=== PATIENT | female | born 1980 | race Two or more races ===

== ENCOUNTER 2020-03-24 11:52 | Emergency (ER) | payer BC, SELFPAY ==
[2020-03-24] VITALS (27 sets, daily range): BP systolic 92–118; BP diastolic 39–77; PULSE 49–68; RESP 10–22; TEMP 36.8; O2SAT 93–100
--- NOTE | ~2020-03-24 | XR_ITS ---
EXAMINATION: XR chest 2V DATE: 03/24/2020 12:19 INDICATION: Bradycardia and weakness TECHNIQUE: frontal and lateral views of the chest were obtained. COMPARISON: Chest CT dated 07/10/2017 FINDINGS: The lungs are clear with no focal airspace opacities, pulmonary edema, pleural effusion or pneumothor ax. The cardiomediastinal silhouette is within normal limits for AP technique. Mild thoracic spondylo sis. IMPRESSION: 1. No acute cardiopulmonary disease. Reviewed, dictated and finalized at location A. RATURE TEACHER
--- NOTE | 2020-03-24 11:55 | ECG_ITS ---
Measurements Intervals [place] Rate: 49 P: 34 NE: 140 QRS: 32 QRSD: 87 T: 54 QT: 453 QTc: 412 Interpretive Statements SINUS BRADYCARDIA ABNORMAL ECG Electronically Signed On 03-24-2020 14:56:05 [employer]HAD[employer] VESSEL PILOT by Kulwinder Pelayo D.O.
[2020-03-24 12:17] LABS: Eosinophils Percent Auto 0.8 % (0-4.4); Hematocrit 32.4 % (37.0-47.0); Hemoglobin 11.1 g/dL (12.0-15.0); Lymphocytes Absolute Auto 2.23 K/mm3 (0.9-3.2); Lymphocytes Percent Auto 57.3 % (18.3-44.2); Mean Corpuscular HGB Conc 34.3 g/dl (32-36); Mean Corpuscular Hemoglobin 30.4 pg (26-34); Mean Corpuscular Volume 88.8 fl (80-100); Mean Platelet Volume 9.6 fl (7.4-10.4); Monocytes Absolute Auto 0.3 K/mm3 (0.1-0.6); Monocytes Percent Auto 8.5 % (2.6-8.5); Neutrophils Absolute Auto 1.3 K/mm3 (1.3-6.7); Neutrophils Percent Auto 32.4 % (45.5-73.1); Platelet Count Result 209 k/mm3 (150-375); Red Blood Count 3.65 M/mm3 (4.2-5.4); Red Cell Distribution Width 12.5 % (11.5-14.5); White Blood Count 3.9 K/mm3 (4.5-10.0)
[2020-03-24 12:29] LABS: Alanine Aminotransferase 13 U/L (4-35); Albumin Level 3.7 g/dL (3.5-5.1); Alkaline Phosphatase 59 U/L (38-126); Anion Gap 2 mmol/L (8-16); Aspartate Amino Transferase 20 U/L (14-36); Bilirubin,Total 0.4 mg/dL (0.2-1.3); Blood Urea Nitrogen 10 mg/dL (7-17); Calcium 8.7 mg/dL (8.4-10.2); Carbon Dioxide 26 mmol/L (22-30); Chloride 108 mmol/L (98-107); Estimated CRCL calculation 118 ml/min; Estimated Glomerular Filt Rate > 60; Glucose 108 mg/dL (65-105); Potassium 3.4 mmol/L (3.4-5.0); Sodium 136 mmol/L (137-145)
[2020-03-24 13:25] LABS: Add Urine Microscopic? YES; Appearance Urine Cloudy (Clear); Bacteria Urine Trace /hpf; Bilirubin Urine Negative (Negative); Blood Urine 3+ (Negative); Color Urine Straw (Yellow); Glucose Urine UA Negative (Negative); Ketones Urine Negative (Negative); Leukocyte Esterase Ur Negative LEU/UL (Negative); Mucus Urine Rare /lpf; Nitrate Urine Negative (Negative); Protein Urine 1+ mg/dL (Negative); RBC Urine 21-50 /hpf (0-2); Specific Grav Ur 1.012 (1.001-1.035); Squamous Epithelial Cell Urine Many /hpf (Few); Urobilinogen Urine Negative mg/dL (<2.0); WBC Urine 0-3 /hpf
--- NOTE | 2020-03-24 15:00 | ED.WEAKNESS ---
HPI - Weakness General Chief complaint: Weakness Stated complaint: near syncope/weakness Time Seen by Provider: 03/24/20 12:29 History of Present Illness HPI Narrative: Patient is a 39-year-old female who presents to the ER with weakness and syncope. Patient developed some low back pain last night and took some tramadol. She reports when she takes tramadol she gets lightheaded often. She took the medication at 1 AM. She woke up this morning around 11 and went to the bathroom. After getting up from the toilet she began to feel lightheaded. reports he caught her and that she may have been passed out for 10 seconds with her eyes open. She did not strike her head. She has been feeling nauseated since waking as well. She has been on her period in today's last day. Has not had this happen to her previously. No known sick contacts. No Covid symptoms. Related Data Allergies Allergy/AdvReac Type Severity Reaction Status Date / Time No Known Allergies Allergy Verified 03/24/20 12:09 Review of Systems Review of Systems: All systems reviewed & are unremarkable except as noted in HPI and below Constitutional: Constitutional: Denies chills, Reports fatigue and Denies fever(s) ENT: Denies nasal congestion and Denies sore throat Cardiovascular: Cardiovascular: Denies chest pain, Denies rapid heart rate and Denies radiating jaw, neck or arm pain Respiratory: Respiratory: Denies cough, Denies dyspnea and Denies wheezing Gastrointestinal: Gastrointestinal: Denies abdominal pain, Denies diarrhea, Reports nausea and Denies vomiting Genitourinary: Genitourinary: Denies abnormal vaginal bleeding, Denies nocturia and Denies dysuria Comments: Currently menstruating Neurologic: Reports syncope PMFSH Past Medical History Medical History Depression Surgical History Surgical History Previous section x 3 Family History Family History Father Family history of pancreatic cancer Social History Social History Smoking status: Never smoker Alcohol intake: never Gender identity (if verbalized by the patient): Female Exam Narrative: Exam Narrative: GENERAL: Well-appearing, well-nourished, and in no acute distress. HEAD: Normocephalic, atraumatic. EYES: PERRL and EOMI. CHEST: Clear to auscultation. No respiratory distress. HEART: Regular rate and rhythm. Normal peripheral pulses. ABDOMEN: Soft, nontender, nondistended. EXTREMITIES: Normal range of motion. No edema. SKIN: Warm, dry, no rash. NEURO: Alert and oriented x3. Course Course Emergency Course: Patient hydrated. Orthostatics normal. Received Zofran for nausea. Tolerating p.o. No source for patient's symptoms, may be related to the tramadol she took last night since she does get dizzy when she takes it. Discharge home with supportive therapy. Vital Signs Vital signs: Vital Signs Pulse Rate 53 L 03/24/20 11:59 Respiratory Rate 11 L 03/24/20 11:59 Blood Pressure 109/77 03/24/20 11:59 Pulse Oximetry 100 03/24/20 11:59 Temperature 98.3 F 03/24/20 12:02 Pulse Rate 54 L 03/24/20 13:43 Respiratory Rate 17 03/24/20 13:30 Blood Pressure 111/72 03/24/20 12:59 Pulse Oximetry 93 03/24/20 13:30 MDM - Weakness Lab Data Result diagrams: 03/24/20 12:11 03/24/20 12:11 Labs: Lab Results 03/24/20 03/24/20 03/24/20 Range/Units 12:11 12:11 13:15 WBC 3.9 L (4.5-10.0) K/mm3 RBC 3.65 L (4.2-5.4) M/mm3 Hgb 11.1 L (12.0-15.0) g/dL Hct 32.4 L (37.0-47.0) % MCV 88.8 (80-100) fl MCH 30.4 (26-34) pg MCHC 34.3 (32-36) g/dl RDW 12.5 (11.5-14.5) % Plt Count 209 (150-375) k/mm3 MPV 9.6 (7.4-10.4) fl Immature Gran % (Auto) 0.0
== END 2020-03-24 15:45 | disposition home or self-care (01) ==
PROVIDERS: General Practice; Emergency Provider Emergency Medicine
DX: R55 Syncope and collapse (principal); R00.1 Bradycardia, unspecified
CPT/HCPCS: 36415; 71046; 80053; 81001; 85025; 93005; 99283

== ENCOUNTER → 2020-12-05 13:59 | Outpatient (CLI) | payer BC, SELFPAY ==
--- NOTE | ~2020-12-05 | MM_ITS ---
EXAMINATION: MM screening dimitri BI w matthew HISTORY: Screening TECHNIQUE: Craniocaudal and mediolateral oblique 3-D tomosynthesis images were obtained and synthetic 2-D images were generated. CAD analysis was submitted and interpreted. COMPARISON: No prior mammogram is available for comparison at this institution. BREAST PARENCHYMAL COMPOSITION: The breasts are extremely dense, which lowers the sensitivity of mamm ography. FINDINGS: There is no evidence of suspicious mass, calcification, or architectural distortion to sugg est malignancy in either breast. There has been no suspicious interval change. IMPRESSION: 1. No mammographic evidence of malignancy. 2. Recommend routine screening mammography in one year. BI-RADS Category 1: Negative Reviewed, dictated and finalized at location A.
== END ==
PROVIDERS: PCP Physician Assistant; Visit Provider Physician Assistant
DX: Z12.31 Encounter for screening mammogram for malignant neoplasm of breast (principal)
CPT/HCPCS: 77063; 77067

== ENCOUNTER 2022-02-14 15:34 | Outpatient (RCR) | payer BC, SELFPAY ==
[2021-12-30 16:25] VITALS: BP 108/59; PULSE 94
[2021-12-31 00:54] LABS: Influenza A QL RT-PCR Negative (Negative); Influenza B QL RT-PCR Negative (Negative); SARS-CoV-2 RNA PCR Negative
[2022-01-30 10:37] VITALS: BP 107/65; PULSE 84
[2022-02-06 11:32] VITALS: BP 87/51; PULSE 91
[2022-02-06 11:45] VITALS: BP 95/65; PULSE 87
[2022-02-06 12:00] VITALS: BP 106/57; PULSE 88
[2022-02-06 12:08] VITALS: BP 106/57; PULSE 87
[2022-02-14 16:07] VITALS: BP 99/68; PULSE 84
== END 2022-03-21 07:43 | disposition home or self-care (01) ==
LOC: ANHOBOP 15:34
PROVIDERS: Visit Provider Obstetrics & Gynecology
DX: O36.8130 Decreased fetal movements, third trimester, not applicable or unspecified (principal); Z86.16 Personal history of COVID-19; Z3A.31 31 weeks gestation of pregnancy; Z3A.36 36 weeks gestation of pregnancy; Z3A.37 37 weeks gestation of pregnancy
CPT/HCPCS: 59025; 87636

== ENCOUNTER 2022-02-25 06:25 | Inpatient (IN) | payer BC, SELFPAY ==
[2022-02-25] VITALS (104 sets, daily range): BP systolic 75–103; BP diastolic 37–71; PULSE 64–98; RESP 10–16; TEMP 36.4–36.8; O2SAT 93–100; BMI 29.0
[2022-02-25] MEDS: LACTATED RINGERS 1,000 ML 125 ML IV CONT ×2 (07:50→09:35)
[2022-02-25 07:54] LABS: Basophils Percent Auto 0.4 % (0.2-1.2); Eosinophils Absolute Auto 0.1 K/mm3 (0-0.3); Eosinophils Percent Auto 1.3 % (0-4.4); Hematocrit 30.7 % (37.0-47.0); Hemoglobin 10.5 g/dL (12.0-15.0); Immature Granulocyte Absolute 0.01 K/mm3 (0.00-0.031); Immature Granulocyte Percent A 0.2 % (0-0.5); Lymphocytes Absolute Auto 1.84 K/mm3 (0.9-3.2); Mean Corpuscular HGB Conc 34.2 g/dl (32-36); Mean Corpuscular Hemoglobin 31.9 pg (26-34); Mean Corpuscular Volume 93.3 fl (80-100); Mean Platelet Volume 9.1 fl (7.4-10.4); Monocytes Absolute Auto 0.5 K/mm3 (0.1-0.6); Monocytes Percent Auto 10.2 % (2.6-8.5); Neutrophils Absolute Auto 2.1 K/mm3 (1.3-6.7); Neutrophils Percent Auto 46.9 % (45.5-73.1); Platelet Count Result 217 k/mm3 (150-375); Red Blood Count 3.29 M/mm3 (4.2-5.4); Red Cell Distribution Width 13.6 % (11.5-14.5); White Blood Count 4.5 K/mm3 (4.5-10.0)
--- NOTE | 2022-02-25 08:04 | ECG_ITS ---
Measurements Intervals [place] Rate: 66 P: 35 PA: 131 QRS: 25 QRSD: 86 T: 42 QT: 405 QTc: 427 Interpretive Statements SINUS RHYTHM NORMAL ECG COMPARED TO ECG 03/24/2020 11:56:20 SINUS RHYTHM NOW PRESENT Electronically Signed On 02-25-2022 8:37:30 [employer] DERRICK OPERATOR by Kulwinder Pelayo D.O.
--- NOTE | 2022-02-25 08:54 | LDADM ---
This patient, Rere Hurst, was admitted to Labor/Delivery/Recovery 119 on 02/25/22 at 06:25 with SROM. Plans for surgery/ and pain management were discussed with patient. Patient/family oriented to hospital policies and general routines including ID bracelet, bed and alarms, visiting hours, pain management, procedures, bathroom and other care routines, personal items, smoking policy, room service/diet and guest tray routines, security routines, and visiting hours. Patient/Family are encouraged to report perceived risks to care and to ask questions if they do not understand what they are told or what they should do. See OBIX for further documentation.
--- NOTE | 2022-02-25 09:14 | PM.IMHP ---
H&P: HPI History of Present Illness Date/Time: 02/25/22 09:14 Chief Complaint: Leaking of fluid Narrative: Patient at 39 weeks by LMP with an EDC 03/04/2022 consistent with a 6 week ultrasound presents with complaints of SROM clear at approximately 0500, occasional contractions. Cervix closed on exam on L and D. She was confirmed rupture of membranes on L and D. She has had 3 prior sections. She has been counseled regarding risk benefits of repeat section. She was scheduled for repeat section for 02/26/22. PNC significant for AMA, sciatica. Does not desire permanent sterilization. Labs reviewed. Reassuring tracing. Review of Systems Review of Systems: All systems reviewed & are unremarkable except as noted in HPI and below Constitutional: Constitutional: Reports no additional constitutional complaints and Denies headache(s) Eyes: Eyes: Denies spots in vision ENT: Reports system reviewed and no additional complaints, except as documented and Denies headache(s) Cardiovascular: Cardiovascular: Denies chest pain and Denies dyspnea Respiratory: Respiratory: Denies dyspnea Gastrointestinal: Gastrointestinal: Reports no additional gastrointestinal complaints Genitourinary: Genitourinary: Reports amenorrhea Musculoskeletal: Musculoskeletal: Reports no additional musculoskeletal complaints Integumentary/Breasts: Skin/Breast: Denies breast mass and Denies rash Neurologic: Denies headache(s) Psychiatric: Psychiatric: Reports no additional psychiatric complaints PMFSH Past Medical History Medical History Depression Surgical History Surgical History Previous section x 3 Family History Family History Father Family history of pancreatic cancer Social History Social History Smoking status: Never smoker Alcohol intake: never Substance use: never Gender identity (if verbalized by the patient): Female Spiritual care concerns: No Meds Home Medications and Allergies Home Medications Medication Instructions Recorded Confirmed Type prenat.vits,richie,pjd-rjhr-ipxef 1 tablet PO DAILY 10/09/21 02/25/22 History ferrous sulfate 325 mg (65 mg 325 mg PO BID #60 tabs 10/04/22 01/04/23 Rx iron) tablet aspirin 81 mg chewable tablet 81 mg PO DAILY 02/25/22 02/25/22 History cholecalciferol (vitamin D3) 50 50 mcg PO DAILY 02/25/22 02/25/22 History mcg (2,000 unit) tablet (Vitamin D3) Allergies Allergy/AdvReac Type Severity Reaction Status Date / Time azithromycin Allergy Difficulty Verified 02/25/22 08:07 Breathing Vital Signs Vital Signs - 24 hr 02/25/22 08:05 02/25/22 06:59 02/25/22 07:01 Pulse Rate 72 76 Blood Pressure 102/58 L 103/62 Pulse Oximetry Oxygen Delivery Room Air 02/25/22 07:59 02/25/22 08:01 02/25/22 08:04 Pulse Rate 84 Blood Pressure 95/65 L Pulse Oximetry 100 96 Oxygen Delivery 02/25/22 08:09 02/25/22 08:14 02/25/22 08:19 Pulse Rate Blood Pressure Pulse Oximetry 97 100 99 Oxygen Delivery 02/25/22 08:24 02/25/22 08:29 02/25/22 08:34 Pulse Rate Blood Pressure Pulse Oximetry 100 100 98 Oxygen Delivery 02/25/22 08:39 02/25/22 08:41 02/25/22 08:46 Pulse Rate Blood Pressure Pulse Oximetry 100 100 98 Oxygen Delivery 02/25/22 08:51 02/25/22 09:06 02/25/22 09:11 Pulse Rate Blood Pressure Pulse Oximetry 100 99 100 Oxygen Delivery 02/25/22 08:11 Pulse Rate Blood Pressure Pulse Oximetry 97 Oxygen Delivery Exam Const: General: no acute distress Eyes: General: appearance normal, both eyes and all related structures Resp: Effort & Inspection: normal respiratory effort Cardio: Rate: regular rate GI:
--- NOTE | 2022-02-25 09:47 | WPDHPUPDATE1 ---
History and Physical Update Update Date/Time: 02/25/22 09:47 History and Physical has been reviewed, including an updated exam of the patient. There are NO changes in the patient's condition. Risks, benefits, and alternatives have been discussed and questions answered. Patient agrees to proceed with procedure.
[2022-02-25] MEDS: ceFAZolin 2 GM/D5W 50 ML 2 GM/50 ML BAG IVPB (09:48)
--- NOTE | 2022-02-25 11:51 | SUR.PHASEI ---
Pt has IV of 1000 LR with 20 units Pitocin infusing- 300 ml remains.
[2022-02-25] MEDS: OXYTOCIN 30 UNITS/NS 500 ML 30 UNITS/500 ML BAG 125 UNITS IV CONT (12:33)
[2022-02-25] MEDS: MORPHINE SULFATE INJ (*CRX) 10 MG/ML AMP 2 MG IV PUSH ×2 (12:45→13:10)
[2022-02-25] MEDS: LACTATED RINGERS 250 ML 999 ML IVPB (12:52)
[2022-02-25 14:32] LABS: Rapid Plasma Reagin Non-Reactive (NonReactive)
--- NOTE | 2022-02-25 14:47 | PC.NURSE ---
Patient transferred to post room #277 via stretcher. Support person present. Oriented to unit, room, information board, rooming in, admission packet and security measures. Patient verbalizes understanding.
--- NOTE | 2022-02-25 16:16 | PC.NURSE ---
1545 - 1616 Introductions were made, then consulted with patient to assess needs related to . Mother is demonstrating to the left breast effectively. Mother had several questions regarding supplementing with formula, pumping and parents were instructed that feeding the baby water was not recommended. Risks and benefits of pumping at this time was discussed so the parents can make an informed decision. Parents were encouraged to have a discussion with the ICP. Resources provided for inpatient assistance. Mother voiced understanding of information and will call if there is a request for assistance. Reported to primary RN. 1625 - Mother's nipples were measured for flange fit 24mm in the chance mother would decide to start pumping on the slot shift supervisor. Reported to the Primary RN.
[2022-02-25] MEDS: DEXTROSE 5%/0.45% SOD CHL 1,000 ML 125 ML IV CONT (16:50)
--- NOTE | 2022-02-25 21:33 | P.OP_ITS ---
Procedure Note - Detailed Date of Procedure 02/26/22 Pre-op Diagnosis Repeat C/S Post-op Diagnosis Same Procedure Performed Repeat low transverse section. Surgeon Geremias Valencia MD Anesthesia Spinal Indications Patient with three prior sections presented with SROM and proceeded with recommend repeat section. Findings female infant, normal uterus and ovaries, Description of Procedure After informed consent, risks and benefits of the procedure was discussed with the patient. The patient was taken to the operating room where she was placed in the dorsal lithotomy position with leftward tilt. After the prior placed epidural anesthesia was found to be adequate, she was then prepped and draped in the usual sterile fashion. A Pfannenstiel skin incision was made with a scalpel and carried through to the underlying layer of fascia. The fascia was then nicked in the midline, extending bilaterally. The fascia was very scarred to rectus muscles and was dissected off the rectus muscles bluntly and sharply, superiorly and inferiorly. The rectus muscles were in the midline, and peritoneum was identified and entered bluntly. The pelvic organs were visualized. The bladder blade was then inserted. The lower uterine segment was very thin. The low transverse uterine incision was then made with the scalpel and extended with bilateral index fingers in a crescent-shaped fashion. The head was delivered, loose nuchal cord was manually reduced, and the rest of the infant was delivered. The nose and mouth suctioned. The cord was clamped twice and cut. The was then handed off to the awaiting pediatric staff. The placenta was then delivered manually. The uterine cavity was sponge curretted. The uterus was then exteriorized. The uterine incision was then closed with 0 vicryl in a running locked fashion. Figure of eight sutures were used to umbricate incision and for hemostasis with 0 vicryl Hemostasis noted. The posterior cul de sac was irrigated. The uterus was then returned to the abdomen. Bilateral gutters were cleared off all clots and debris. The uterine incision was inspected and a figure of eight stitch on the right was used at an area that had some bleeding. Hemostasis obtained. Hemoderm and Interceed placed on uterine incision and vertically on front of uterus. The muscle bellies were inspected and cautery and several 0 vicryl stitches were used to obtain hemostasis at the right muscle belly. Hemostasis was noted.The subfascial layer was noted to be hemostatic, and the fascia was closed with 0 PDS in a running fashion. The subc utaneous layer was then closed with 3-0 Vicryl in a subcutaneous fashion. The skin was closed with 4.0 vicryl in a subcuticular fashion. Skin dermabond applied at incision. Dressing placed. All instruments, needle, and lap counts were correct x3. The patient was taken to the recovery room in stable condition. Estimated Blood Loss 1,100 Drains No Packing No Pathology None sent Complications No immediate complications Condition Stable Disposition Floor [facility] Billing Surgery - Charge Forward: Surgery Billing
[2022-02-25] MEDS: HYDROcodone/acetaminophen (*CRX) 10-325 MG TABLET 1 TAB PO (23:33)
[2022-02-26] MEDS: IBUPROFEN 600 MG TABLET PO ×3 (02:36→17:38)
[2022-02-26] MEDS: HYDROcodone/acetaminophen (*CRX) 10-325 MG TABLET 1 TAB PO ×5 (02:36→20:50)
[2022-02-26] MEDS: SIMETHICONE 80 MG TAB.CHEW PO ×4 (02:36→19:49)
[2022-02-26 04:10] VITALS: BP 89/50; PULSE 74; RESP 18; TEMP 36.9
[2022-02-26 04:47] LABS: Basophils Percent Auto 0.3 % (0.2-1.2); Eosinophils Percent Auto 0.5 % (0-4.4); Hematocrit 25.8 % (37.0-47.0); Hemoglobin 8.8 g/dL (12.0-15.0); Immature Granulocyte Absolute 0.02 K/mm3 (0.00-0.031); Immature Granulocyte Percent A 0.3 % (0-0.5); Lymphocytes Absolute Auto 2.04 K/mm3 (0.9-3.2); Lymphocytes Percent Auto 26.9 % (18.3-44.2); Mean Corpuscular HGB Conc 34.1 g/dl (32-36); Mean Corpuscular Hemoglobin 31.5 pg (26-34); Mean Corpuscular Volume 92.5 fl (80-100); Mean Platelet Volume 9.5 fl (7.4-10.4); Monocytes Absolute Auto 0.7 K/mm3 (0.1-0.6); Monocytes Percent Auto 9.1 % (2.6-8.5); Neutrophils Absolute Auto 4.8 K/mm3 (1.3-6.7); Neutrophils Percent Auto 62.9 % (45.5-73.1); Platelet Count Result 202 k/mm3 (150-375); Red Blood Count 2.79 M/mm3 (4.2-5.4); Red Cell Distribution Width 13.5 % (11.5-14.5); White Blood Count 7.6 K/mm3 (4.5-10.0)
[2022-02-26 07:35] VITALS: BP 88/58; PULSE 64; RESP 16; TEMP 37.2; O2SAT 98
[2022-02-26] MEDS: DOCUSATE SODIUM 100 MG CAPSULE PO ×2 (09:29→17:41)
[2022-02-26] MEDS: MULTIVIT/MIN/PREN/FOL AC/IRON TABLET 1 TAB PO (09:29)
[2022-02-26] MEDS: POLYSACCHARIDE IRON COMPLEX 150 MG CAPSULE PO ×2 (09:29→17:40)
--- NOTE | 2022-02-26 09:52 | WPDANLDPN2 ---
Anes-Prog Note L&D Date/Time: 02/26/22 09:52 Comfortable throughout: section Neuraxial method: spinal Epidural/Spinal procedure site: clean & non-tender Neuro status: Neuro function grossly intact. Cardiovascular status: normal Respiratory status: normal Airway patency: baseline Mental status: baseline Post-Op hydration status: normal Vital Signs: Last Vital Signs Temp 37.2 C 02/26/22 07:35 Pulse 64 02/26/22 07:35 Resp 16 02/26/22 07:35 BP 88/58 L 02/26/22 07:35 Pulse Ox 98 02/26/22 07:35 O2 Del Method Room Air 02/26/22 04:10 Pain score (VAS): 4/10 I/O: Intake & Output 02/25/22 02/26/22 02/26/22 23:59 07:59 15:59 Intake Total 1050 1600 Output Total 1550 1550 Balance -500 50 Post-procedural complaints: none Patient feedback: Patient satisfied with anesthetic care.
--- NOTE | 2022-02-26 09:53 | WPDANLDNPN2 ---
Anes-Prog Note L&D-Neuraxial Date/Time: 02/26/22 09:53 Neuraxial medications: intrathecal PF morphine Opiod-related complaints: none Patient feedback: Patient satisfied with post-operative pain management.
--- NOTE | 2022-02-26 16:08 | PC.NURSE ---
[id number] Mother verbalizes she is able to independently latch with appropriate positioning/alignment. She denies any nipple discomfort and is responsively . is currently meeting outcomes for weight, output, jaundice and feeding frequencies of 8-12 times in 24 hours. Mother declines any additional assistance/education at this time. Mother is encouraged to call for assistance if her doesn?t latch or there is discomfort with latching. Mother voiced understanding of information shared and the mom reminded of the mom/baby guide for an additional resource. Reported to the primary RN.
[2022-02-26 19:49] VITALS: BP 89/53; PULSE 86; RESP 18; TEMP 36.8; O2SAT 97
--- NOTE | 2022-02-26 21:03 | P.PNOB_ITS ---
OB - PN: Subj Subjective Date/time seen: 02/26/22 0740 Patient comments: pain well controlled baby status: nursing well feeding status: exclusively breast feeding Narrative: She has ambulated in room. Tolerated liquids, no flatus. No leg pain. Minimal lochia. She has adequate pain control with oral medication. No hypovolemic symptoms. OB - PN: Obj Data Labs 02/26/22 03:55 Labs: Laboratory Results - last 24 hr 02/26/22 03:55 WBC 7.6 RBC 2.79 L Hgb 8.8 L Hct 25.8 L MCV 92.5 MCH 31.5 MCHC 34.1 RDW 13.5 Plt Count 202 MPV 9.5 Immature Gran % (Auto) 0.3 Neut % (Auto) 62.9 Lymph % (Auto) 26.9 [place] % (Auto) 9.1 H Eos % (Auto) 0.5 Baso % (Auto) 0.3 Lymph # (Auto) 2.04 [place] # (Auto) 0.7 H Eos # (Auto) 0.0 Baso # (Auto) 0.0 Abs Immat Gran (auto) 0.02 Absolute Neuts (auto) 4.8 Absolute Nucleated RBC 0.0 Nucleated RBC % 0.0 OB - PN A/P Assessment and Plan (1) Delivery by section at 37-39 weeks of gestation due to labor: Code(s): O75.82 - Onset (spontaneous) of labor after 37 completed weeks of gestation but before 39 completed weeks gestation, with delivery by (planned) section Status: Acute Assessment and Plan: POD1 s/p repeat . She is doing well. Asymptomatic anemia. Continue iron supplementation. Routine post op care. Time Spent With Patient Time: Total time spent is greater than 50% in coordination of care (as documented) at patient's floor/unit and/or counseling patient: Exam Const: General: comfortable Eyes: General: appearance normal, both eyes and all related structures Neck: Neck: normal visual inspection Resp: Effort & Inspection: normal respiratory effort Auscultation: clear to auscultation bilaterally Cardio: Rate: regular rate Rhythm: regular rhythm GI: Inspection: normal to inspection Other: dressing clean dry intact, fundus -2umb, appropriate fundal tenderness Extrem: Other: nontender bilat, no swelling bilat Psych: Appearance: grossly normal
[2022-02-27] MEDS: SIMETHICONE 80 MG TAB.CHEW PO ×4 (04:00→19:39)
[2022-02-27] MEDS: IBUPROFEN 600 MG TABLET PO ×3 (04:00→19:32)
[2022-02-27] MEDS: HYDROcodone/acetaminophen (*CRX) 10-325 MG TABLET 1 TAB PO ×3 (04:00→15:30)
[2022-02-27 08:05] VITALS: BP 94/58; PULSE 76; RESP 18; TEMP 37.6; O2SAT 100
[2022-02-27] MEDS: MULTIVIT/MIN/PREN/FOL AC/IRON TABLET 1 TAB PO (09:04)
[2022-02-27] MEDS: POLYSACCHARIDE IRON COMPLEX 150 MG CAPSULE PO ×2 (09:04→15:28)
[2022-02-27] MEDS: DOCUSATE SODIUM 100 MG CAPSULE PO ×2 (09:04→15:28)
--- NOTE | 2022-02-27 16:41 | PC.NURSE ---
1103 - RN will return to the room when patient is out of the restroom ready to practice . [id number] Introductions were made, then consulted with patient to assess needs related to . Mother led the conversation with her?plans to feed?her infant and the?experience so far. Resources provided for inpatient and outpatient services the office number on the feeding sheet and mom/baby guide. Mother voiced understanding of information and requests assistance. Mother works well with her with encouragement and education with no previous history. Encouraged understanding of the benefits of skin to skin (demonstrating unwrapping and placing upright on her chest), stimulating with massage touch, changing positions to encourage wakefulness, how to watch for early feeding cues, responsive feeding, feeding on demand (aiming for 8-12 times in 24 hours, about every 2-3 hours), milk production, building/maintaining a milk supply, duration of feeding, signs of adequate intake/output and how to record on the feeding sheet. Reviewed positioning and ear, shoulder, hip alignment, supporting the breast to facilitate a deep latch, asymmetrical latch (off-center), leading with the chin with a big, open, wide gape and body close to mother. Infant latched optimally to the left breast in cross cradle position. Education given to mother of how to visualize suck/swallow ratios and listen for drinking at the breast. was able to maintain latch without discomfort to mother. Nipple care reviewed with optimal latch and good positioning. Patient practiced nursing on the right breast using football positioning. Discussed the importance with mother regarding stimulation to drinking and rare swallows were observed. 's jaundice levels and mother's hypothyroidism were discussed. Mother was encouraged to continue to breastfeed, encouraging swallowing, improving her milk production with gentle massage and compression while . Risks and benefits were reviewed of supplementing with formula and pumping. Mother then practice infant on the left breast using football positioning. Mother encouraged with stimulating techniques to improve swallowing at the breast. Infant is sleepy, reluctant and has a rare swallow with suck/swallow ratio > 3:1. Reviewed good handwashing when or touching the breast/nipples to prevent infection. Resources used to facilitate learning were used with the mom and baby guide. Mother voiced understanding of skin to skin, stimulating with massage touch, responsive feedings, hand expressed colostrum, talking to infant to encourage if it has been 2 -2.5 hours since the start of the last , to call if infant does not latch, or if there is discomfort with . Resources provided for inpatient/outpatient with the office number on the feeding sheet and the mom/baby guide. Parents voiced understanding of information, demonstrated learning and will call if there is a request for assistance. Reported to primary RN.
--- NOTE | 2022-02-27 16:53 | PC.NURSE ---
[id number] Mother led the conversation with her experience and plan to feed her so far, her ability to independently latch optimally without discomfort and is demonstrating an effective latch at this time. Reminded parents to use good handwashing technique to prevent infection. Mother is feeding appropriately for growth of and understands stimulating infant to eat if needed. Infant has had appropriate feedings in the last 24 hours meets the outcomes for weight, output and jaundice at this time. Mother states she is confident to continue effectively her infant at home, when to call for assistance and denies any additional assistance or education at this time. Reinforced understanding of milk production, transition of milk, signs of adequate intake, transition of stool, prevention/relief of engorgement, responsive watching for feeding cues, the different methods of stimulating infant to breastfeed 2-3 hours after the start of the last feeding, community resources, medication information reviewed per [employer] and when to call a provider using the resource of the mom and baby guide/[facility] website. Mother voiced understanding of the education shared. Reported to the primary RN.
[2022-02-27 19:40] VITALS: BP 96/54; PULSE 88; RESP 18; TEMP 36.4; O2SAT 97
[2022-02-27] MEDS: HYDROcodone/acetaminophen (*CRX) 5-325 MG TABLET 1 TAB PO (21:35)
[2022-02-28] MEDS: IBUPROFEN 600 MG TABLET PO ×2 (02:00→07:59)
[2022-02-28] MEDS: SIMETHICONE 80 MG TAB.CHEW PO ×2 (04:15→08:01)
[2022-02-28] MEDS: HYDROcodone/acetaminophen (*CRX) 5-325 MG TABLET 1 TAB PO ×2 (04:15→12:36)
[2022-02-28 08:00] VITALS: BP 95/61; PULSE 83; RESP 16; TEMP 36.6; O2SAT 98
[2022-02-28] MEDS: DOCUSATE SODIUM 100 MG CAPSULE PO (08:00)
[2022-02-28] MEDS: MULTIVIT/MIN/PREN/FOL AC/IRON TABLET 1 TAB PO (08:00)
[2022-02-28] MEDS: POLYSACCHARIDE IRON COMPLEX 150 MG CAPSULE PO (08:00)
--- NOTE | 2022-02-28 08:29 | PM.OBDSVD ---
DS: Admitting Diagnosis Discharge Date 02/28/22 Admitting Diagnosis intrauterine at term OB - DS: Summary OB Procedures : None OB Procedures Intrapartum: OB Procedures: : None Peripartum Data Infant Delivery Method: Section Procedures: Procedures Operation Date: 02/25/22 09:30 Actual Procedure Side Surgeon p Repeat Section Geremias Valencia MD complications: none Status at Discharge Functional status at discharge: independent ambulation Overall status at discharge: patient is progressing back to baseline Time Spent with Patient Time attestation: Total time spent providing and/or coordinating discharge services: Time spent: Less than 30 minutes Exam Const: General: comfortable and no acute distress Resp: Effort & Inspection: normal respiratory effort Auscultation: clear to auscultation bilaterally Cardio: Rate: regular rate GI: Inspection: non-distended GI Palp: Yes Soft to palpation, No Firmness to palpation present (GI), Yes Tenderness to palpation present (GI) (mild tenderness over incision ) and No Guarding due to palpation present (GI) Auscultation: normal bowel sounds Psych: Appearance: grossly normal Mental Status: mental status grossly normal Discharge Plan Discharge Discharging Clinician: Ruperto Leija Patient Disposition: Home, Self-Care Activity: as tolerated and pelvic rest Diet: regular Patient Instructions: Antibiotic Form, (DC) Stand Alone Forms: General Discharge Information Follow-up/Referrals: Geremias Valencia MD [Physician] - Discharge Medications: New hydrocodone-acetaminophen 5-325 mg tablet 1 tablet PO Q6H PRN (Reason: pain) Qty: 30 0RF acetaminophen [Mapap (acetaminophen)] 325 mg Tablet 650 mg PO Q6H PRN (Reason: Mild Pain (1-3)) Qty: 30 0RF ibuprofen 600 mg Tablet 600 mg PO Q6H PRN (Reason: Cramping) Qty: 30 0RF polysaccharide iron complex 150 mg iron Capsule 150 mg PO BIDWM Qty: 60 0RF Continued prenat.vits,richie,bzs-qoyp-[id number] Tablet 1 tablet PO DAILY aspirin 81 mg Tablet,Chewable 81 mg PO DAILY cholecalciferol (vitamin D3) [Vitamin D3] 50 mcg (2,000 unit) Tablet 50 mcg PO DAILY ferrous sulfate 325 mg (65 mg iron) tablet 325 mg PO BID Qty: 60 3RF Date of admission: 02/25/22 06:25 Primary Care Provider: UNKNOWN,DOCTOR Admitting Provider: Geremias Valencia Attending physician on admission: Geremias Valencia Condition: Stable
--- NOTE | 2022-02-28 13:56 | PM.OBPNVD ---
OB - PN: Subj Subjective Date/time seen: 02/28/22 13:56 ( late entry, patient seen 02/27/22- 1200) Patient comments: tolerating diet baby status: nursing well Narrative: She states adequate pain control with [place] 10. Scant lochia. She has ambulated in room. No flatus. No leg pain. OB - PN: Obj Data Labs 02/26/22 03:55 OB - PN A/P Assessment and Plan (1) Delivery by section at 37-39 weeks of gestation due to labor: Code(s): O75.82 - Onset (spontaneous) of labor after 37 completed weeks of gestation but before 39 completed weeks gestation, with delivery by (planned) section Status: Acute Plan POD2 s/p c/s doing well. She had flatus later in day. Routine post care. Anticipate discharge tomorrow. Time Spent With Patient Time: Total time spent is greater than 50% in coordination of care (as documented) at patient's floor/unit and/or counseling patient: Exam Const: General: comfortable and no acute distress Eyes: General: appearance normal, both eyes and all related structures Resp: Effort & Inspection: normal respiratory effort GI: Other: fundus -2umb firm appropriate tender, incision intact no drainage. Neuro: General: oriented to person, oriented to place and oriented to time Extrem: General: normal to inspection, no pedal edema and no calf tenderness Psych: Mental Status: mental status grossly normal Affect: normal affect
[2022-03-02 07:49] VITALS: BP 108/60; PULSE 77; RESP 20; TEMP 36.9; O2SAT 100
== END 2022-02-28 13:45 | disposition home or self-care (01) | DRG 788 ==
LOC: ANHOB2 02-28 11:46 → ANHLDR 03-02 14:21 → ANHOB2 03-02 14:21
PROVIDERS: Admitting Provider Obstetrics & Gynecology; Visit Provider Student in an Organized Health Care Education/Training Program
DX: O34.211 Maternal care for low transverse scar from previous cesarean delivery (principal); Z37.0 Single live birth; Z3A.39 39 weeks gestation of pregnancy; O69.81X0 Labor and delivery complicated by cord around neck, without compression, not applicable or unspecified; O99.02 Anemia complicating childbirth; D64.9 Anemia, unspecified
CPT/HCPCS: 36415; 84112; 85025; 86592; 86850; 86900; 86901; 93005; A9270; J0131; J0456; J0690; J1100; J2210; J2270; J2274; J2370; J2405; J2590; J3010; J7120

== ENCOUNTER 2022-03-02 09:12 | Outpatient (CLI) | payer BC, SELFPAY ==
[2022-03-02 09:36] LABS: Add Urine Microscopic? YES; Appearance Urine Clear (Clear); Bilirubin Urine Negative (Negative); Blood Urine 2+ (Negative); Color Urine Yellow (Yellow); Glucose Urine UA Negative (Negative); Ketones Urine Negative (Negative); Leukocyte Esterase Ur Negative LEU/UL (NEGATIVE); Nitrate Urine Negative (Negative); Protein Urine Negative (Negative); Specific Grav Ur 1.015 (1.001-1.035); Urobilinogen Urine 0.2 mg/dL (<2.0); pH Urine 7.5 (5.0-9.0)
[2022-03-02 11:03] LABS: Mucus Urine Rare /lpf; Squamous Epithelial Cell Urine Rare /hpf (Few); WBC Urine 0-3 /hpf (0-3)
== END 2022-03-02 09:13 | disposition home or self-care (01) ==
LOC: ANHOBOP 09:13
PROVIDERS: Visit Provider Obstetrics & Gynecology
DX: Z87.440 Personal history of urinary (tract) infections (principal)
CPT/HCPCS: 81001

== ENCOUNTER 2022-06-08 15:26 | Outpatient (CLI) | payer BC, SELFPAY ==
--- NOTE | ~2022-06-08 | MM_ITS ---
EXAMINATION: MM screening dimitri BI w matthew HISTORY: Screening mammogram TECHNIQUE: Craniocaudal and mediolateral oblique 3-D tomosynthesis images were obtained and synthetic 2-D images were generated. CAD analysis was submitted and interpreted. COMPARISON: 12/05/2020 BREAST PARENCHYMAL COMPOSITION: The breasts are extremely dense, which lowers the sensitivity of mamm ography. FINDINGS: Slight interval increase in breast density is consistent with history of breast-feeding. No suspicious mass, calcification, or architectural distortion are identified in either breast to sugge st malignancy. There has been no suspicious interval change. IMPRESSION: 1. No mammographic evidence of malignancy. 2. Recommend routine screening mammography in one year. BI-RADS Category 1: Negative Reviewed, dictated and finalized at location A.
== END 2022-06-08 15:27 | disposition home or self-care (01) ==
PROVIDERS: Visit Provider Obstetrics & Gynecology
DX: Z12.31 Encounter for screening mammogram for malignant neoplasm of breast (principal)
CPT/HCPCS: 77063; 77067

== ENCOUNTER → 2022-07-16 10:31 | Outpatient (CLI) | payer BC, SELFPAY ==
--- NOTE | ~2022-07-16 | XR_ITS ---
EXAMINATION: XR lumbar spine min 4V DATE: 07/16/2022 12:41 INDICATION: Lumbago with sciatica. TECHNIQUE: 6 views of lumbar spine were obtained. COMPARISON: Lumbar spine MRI 07/16/2022 FINDINGS: There is 7 degrees dextrocurvature of lumbar spine. Vertebral body heights are normal. Inte rvertebral disc heights are normal. There is multilevel mild facet joint osteoarthritis. IMPRESSION: 1. Mild lumbar facet joint osteoarthritis. Reviewed, dictated and finalized at location E.
--- NOTE | ~2022-07-16 | MR_ITS ---
MRI of the lumbar spine Clinical History: Back pain Technique: Axial T2-weighted images, and sagittal T1-weighted, T2-weighted, and T2 fat-sat images wer e acquired. Findings: There is no fracture or subluxation of the lumbar spine. Vertebral bodies maintain normal h eight and alignment. No suspicious bone marrow signal abnormality seen. At L1-L2, L2-L3, L3-L4, intervertebral discs maintain normal signal and position. No disc bulge or he rniation at these levels. There is moderate facet arthropathy at L1-L2, with minimal facet arthropath y at L2-L3 at L3-L4. No spinal canal stenosis or neural foraminal narrowing at these levels. At L4-L5, there is mild degenerative disc narrowing with mild diffuse disc bulge and minimal facet ar thropathy. No spinal canal stenosis. There is mild right neural foraminal narrowing. At L5-S1, there is no disc bulge or herniation. There is minimal facet arthropathy. No spinal canal s tenosis or neural foraminal narrowing. Paravertebral soft tissues are unremarkable. Impression: Minimal degenerative spondylitic changes, as above. Reviewed, dictated and finalized at location M. Impression: Minimal degenerative spondylitic changes, as above.
--- NOTE | ~2022-07-16 | MR_ITS ---
MRI of the cervical spine Clinical History: Pain Technique: Axial T2-weighted and gradient images, and sagittal T1-weighted, T2-weighted, and STIR quita ges were acquired. Findings: There is no fracture or subluxation of the cervical spine. Vertebral bodies maintain normal height and alignment. No suspicious bone marrow signal abnormality seen. Several minimal disc osteophyte complexes are present, most likely at C5-C6 and C6-C7. There is no sp inal canal stenosis, cord compression, or neural foraminal narrowing at any cervical level. No abnormal signal seen in the spinal cord. No epidural mass or collection seen. Paravertebral soft t issues are unremarkable. Impression: Minimal degenerative change, as above. Reviewed, dictated and finalized at location M. Impression: Minimal degenerative change, as above.
--- NOTE | ~2022-07-16 | XR_ITS ---
EXAMINATION: XR sacroiliac joints min 3V DATE: 07/16/2022 12:41 INDICATION: Lumbago sciatica. TECHNIQUE: 3 views of the sacroiliac joints were obtained. COMPARISON: MRI 07/16/2022 FINDINGS: Bone alignment is normal. No fracture. There is mild osteoarthritis of the sacroiliac joint s characterized by tiny osteophytes. IMPRESSION: 1. Mild osteoarthritis of the sacroiliac joints. No evidence of inflammatory arthropathy. Reviewed, dictated and finalized at location E. IMPRESSION: 1. Mild osteoarthritis of the sacroiliac joints. No evidence of inflammatory ar thropathy.
--- NOTE | ~2022-07-16 | XR_ITS ---
EXAMINATION: XR cervical spine 4-5V DATE: 07/16/2022 12:40 INDICATION: Neck pain. TECHNIQUE: 6 views of cervical spine including flexion and extension views were obtained. COMPARISON: Cervical spine radiographs 11/21/2018, MRI 07/16/2022 FINDINGS: There is 6 degrees levocurvature of cervicothoracic spine. There is no abnormal motion with flexion or extension. Vertebral body heights and intervertebral disc heights are normal. The facet j oints are unremarkable. No central canal stenosis or prevertebral soft tissue swelling. IMPRESSION: 1. No etiology for the patient's symptoms. Reviewed, dictated and finalized at location E.
== END ==
DX: M46.1 Sacroiliitis, not elsewhere classified (principal); M47.816 Spondylosis without myelopathy or radiculopathy, lumbar region; M54.2 Cervicalgia; M54.40 Lumbago with sciatica, unspecified side; R20.2 Paresthesia of skin; Z09 Encounter for follow-up examination after completed treatment for conditions other than malignant neoplasm
CPT/HCPCS: 72050; 72110; 72141; 72148; 72202

== ENCOUNTER → 2022-07-16 11:57 | Outpatient (CLI) | payer BC, SELFPAY ==
--- NOTE | ~2022-07-16 | MR_ITS ---
EXAMINATION: MR pelvis wo con DATE: 07/16/2022 12:20 INDICATION: Dorsalgia, unspecified. Lumbago with sciatica. Bilateral buttock pain. TECHNIQUE: Magnetic resonance imaging (MRI) of the pelvis was performed without intravenous contrast. COMPARISON: None. FINDINGS: Bone alignment is normal. No fracture. There is mild lumbar spondylosis. There is mild osteoarthritis of the sacroiliac joints. The gluteal tendons, hamstring tendon origins, and iliopsoas tendons are n ormal. There are changes of section. IMPRESSION: 1. Mild osteoarthritis of the sacroiliac joints. Reviewed, dictated and finalized at location E.
== END ==
DX: M47.898 Other spondylosis, sacral and sacrococcygeal region (principal); M54.40 Lumbago with sciatica, unspecified side
CPT/HCPCS: 72195

== ENCOUNTER 2024-04-11 13:33 | Outpatient (CLI) | payer BC, SELFPAY ==
--- NOTE | ~2024-04-11 | US_ITS ---
EXAMINATION: US pelvic complete w TV DATE: 04/11/2024 14:09 INDICATION: Excessive and frequent menstruation. TECHNIQUE: Multiple transabdominal and transvaginal sonographic images of the pelvis were obtained. COMPARISON: MRI 07/16/2022 FINDINGS: TRANSABDOMINAL ULTRASOUND: The uterus measures 10.0 x 4.2 x 5.9 cm. There is no free fluid in the pelvis. TRANSVAGINAL ULTRASOUND: The endometrial complex measures 11 mm in thickness. There is scarring of the lower uterine segment f rom prior section. The right ovary measures 2.8 x 2.3 x 2.7 cm. The left ovary measures 2.0 x 1.6 x 1.7 cm. There is normal vascular flow in the ovaries. IMPRESSION: 1. Normal pelvis. Reviewed, dictated and finalized at location A. KET COACH IMPRESSION: 1. Normal pelvis.
== END 2024-04-11 13:34 | disposition home or self-care (01) ==
LOC: MICIMG 13:34
PROVIDERS: PCP Obstetrics & Gynecology; Visit Provider Nurse Practitioner Obstetrics & Gynecology
DX: N92.0 Excessive and frequent menstruation with regular cycle (principal)
CPT/HCPCS: 76830; 76856

== ENCOUNTER 2024-04-25 10:59 | Outpatient (CLI) | payer BC, SELFPAY | END 2024-04-25 11:00 | disposition home or self-care (01) | LOC: ANHIMG 11:02 | PROVIDERS: PCP Obstetrics & Gynecology; Visit Provider Obstetrics & Gynecology | DX: Z12.31 Encounter for screening mammogram for malignant neoplasm of breast (principal) | CPT/HCPCS: 77063; 77067 ==